=== PATIENT | male | born 1975 | race Caucasian/White ===

== ENCOUNTER 2018-01-08 21:23 | Emergency (ER) | payer BC ==
[2018-01-08] MEDS ORDERED: Sodium Chloride 0.9% 1,000 ML IV ONE ×2 (21:37→22:27)
[2018-01-08] MEDS ORDERED: Ketorolac 30 MG/ML SDV IVPUSH ONE (21:43)
--- NOTE | 2018-01-08 21:50 | EDM.PDOC ---
ED HPI GENERAL MEDICAL PROBLEM - General Chief Complaint: Fever Stated Complaint: [id number] FLU-PRIVATE [facility]HICHLE Time Seen by Provider: 01/08/18 21:48 Source of Information: Reports: Patient History Limitations: Reports: No Limitations - History of Present Illness INITIAL COMMENTS - FREE TEXT/NARRATIVE: onset F/C with V-D last night, V-D stoppped but still has F/C & body aches. 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 [No Known Home Meds] 01/08/18 [History] Past Medical History - Past Health History Medical/Surgical History: Denies Medical/Surgical History HEENT History: Reports: None Cardiovascular History: Reports: High Cholesterol Respiratory History: Reports: None Gastrointestinal History: Reports: None Genitourinary History: Reports: None Musculoskeletal History: Reports: Arthritis, Back Pain, Chronic Neurological History: Reports: None Psychiatric History: Reports: None Endocrine/Metabolic History: Reports: None Hematologic History: Reports: None Immunologic History: Reports: None Oncologic (Cancer) History: Reports: None Dermatologic History: Reports: None - Infectious Disease History Infectious Disease History: Reports: Chicken Pox - Past Surgical History HEENT Surgical History: Reports: Tonsillectomy GI Surgical History: Reports: None Social & Family History - Family History Family Medical History: Noncontributory - Tobacco Use Smoking Status *Q: Never Smoker Second Hand Smoke Exposure: No - Caffeine Use Caffeine Use: Reports: Coffee, Soda - Recreational Drug Use Recreational Drug Use: No ED ROS ENT - Review of Systems Review Of Systems: ROS reveals no pertinent complaints other than HPI. ED EXAM, ENT - Physical Exam Exam: See Below Exam Limited By: No Limitations General Appearance: Alert, WD/WN, Mild Distress, Other (general discomfort) Ears: Hearing Grossly Normal Mouth/Throat: Normal Inspection Head: Atraumatic Neck: Non-Tender, Full Range of Motion Respiratory/Chest: No Respiratory Distress Cardiovascular: Regular Rate, Rhythm GI/Abdominal: Soft, Non-Tender Neurological: Alert, Oriented, Normal Cognition, Normal Gait, No Motor/Sensory Deficits Psychiatric: Flat Affect Skin: Warm, Dry, Normal Color Lymphatic: No Adenopathy Course - Vital Signs Last Recorded V/S: Last Vital Signs Temp 36.9 C 01/08/18 23:15 Pulse 97 01/08/18 23:15 Resp 16 01/08/18 23:15 BP 127/65 01/08/18 23:15 Pulse Ox 96 01/08/18 23:15 - Orders/Labs/Meds Orders: Active Orders 24 hr Category Date Time Status CULTURE BLOOD [BC] Stat Lab 01/08/18 21:48 Received Labs: Laboratory Tests 01/08/18 01/08/18 01/08/18 Range/Units 21:48 21:48 21:48 WBC 9.5 (5.0-10.0) 10^3/uL RBC 5.26 (4.6-6.2) 10^6/uL Hgb 15.7 (14.0-18.0) g/dL Hct 44.9 (40.0-54.0) % MCV 85.4 (80-100) fL MCH 29.8 (27.0-34.0) pg MCHC 35.0 (33.0-35.0) g/dL Plt Count 188 (150-450) 10^3/uL Neut % (Auto) 82.3 H (42.2-75.2) % Lymph % (Auto) 7.5 L (20.5-50.1) % Morgan % (Auto) 10.1 H (2-8) % Eos % (Auto) 0.1 L (1.0-3.0) % Baso % (Auto) 0.0 (0.0-1.0) % Sodium 134 L (135-145) mmol/L Potassium 3.2 L (3.6-5.0) mmol/L Chloride 101 (101-111) mmol/L Carbon Dioxide 24.0 (21.0-31.0) mmol/L Anion Gap 12.2 BUN 18 (7-18) mg/dL Creatinine 0.9 (0.6-1.3) mg/dL Est Cr Clr Drug Dosing 113.88 mL/min Estimated GFR (MDRD) > 60 BUN/Creatinine Ratio 20.00 Glucose 133 H (74-105) mg/dL Lactic Acid 1.0 (0.5-2.2) mmol/L Calcium 8.7 (8.4-10.2) mg/dl Total Bilirubin 0.9 (0.2-1.0) mg/dL AST 19 (10-42) IU/L ALT 21 (10-60) IU/L Alkaline Phosphatase 50 (42-121) IU/L Total Protein 7.3 (6.7-8.2) g/dl Albumin 4.1 (3.2-5.5) g/dl Globulin 3.2 Albumin/Globulin Ratio 1.28 Meds: Medications Discontinued Medications Generic Name Dose Route Start Last Admin Trade Name Vero PRN Reason Stop Dose Admin Sodium Chloride 1,000 mls @ 999 mls/hr 01/08/18 21:37 01/08/18 21:47 Normal Saline IV 01/08/18 22:37 999 mls/hr .BOLUS ONE Administration Sodium Chloride 1,000 mls @ 999 mls/hr 01/08/18 22:27 01/08/18 22:55 Normal Saline IV 01/08/18 23:27 999 mls/hr .BOLUS ONE Administration Ketorolac Tromethamine 15 mg 01/08/18 21:43 01/08/18 21:51 Toradol IVPUSH 01/08/18 21:44 15 mg ONETIME ONE Administration - Re-Assessments/Exams Free Text/Narrative Re-Assessment/Exam: 01/08/18 23:33 results discussed with pt who is feeling much better s/p IV fluids + Rx Departure - Departure Time of Disposition: 23:34 Disposition: Home, Self-Care 01 Condition: Good Clinical Impression: Gastroenteritis, Flu syndrome - Discharge Information Instructions: Viral Illness, Adult Forms: ED Department Discharge Additional Instructions: 1) avoid solid foods next 48 hours 2) take motrin or tylenol for fever and chills and body aches 3) return if there is any change or concern - My Orders Last 24 Hours: My Active Orders 01/08/18 21:48 CULTURE BLOOD [BC] Stat - Assessment/Plan Last 24 Hours: My Active Orders 01/08/18 21:48 CULTURE BLOOD [BC] Stat
[2018-01-08 22:10] LABS: CHLORIDE,CL 101 mmol/L (101-111); SODIUM,NA 134 mmol/L (135-145)
[2018-01-08 23:17] VITALS: BP 127/65
== END 2018-01-08 23:41 | disposition home or self-care (01) ==
LOC: DL.ED 21:23
DX: K52.9 Noninfective gastroenteritis and colitis, unspecified (principal); J11.1 Influenza due to unidentified influenza virus with other respiratory manifestations; E78.00 Pure hypercholesterolemia, unspecified
CPT/HCPCS: 36415; 80053; 83605; 85025; 87040; 87804; 96361; 96374; 99283; J1885; J7030

== ENCOUNTER 2022-08-09 07:20 | Emergency (ER) | payer BC ==
[2022-08-09] MEDS ORDERED: Fluorescein 1 MG Ophth Strip OP ONE (20:35)
[2022-08-09] MEDS ORDERED: Tetracaine HCl/PF 0.5% 4 ML Bottle OP ONE (20:35)
[2022-08-09] MEDS ORDERED: Gentamicin 0.3% Ophth Soln 5 ML Bottle EYEBOTH ONE (21:05)
== END 2022-08-09 21:12 | disposition home or self-care (01) ==
LOC: DL.ED 07:20
DX: S05.02XA Injury of conjunctiva and corneal abrasion without foreign body, left eye, initial encounter (principal)
CPT/HCPCS: 99283

== ENCOUNTER 2023-05-04 08:07 | Emergency (ER) | payer BC ==
[2023-05-04 08:26] VITALS: BP 152/104; PULSE 83
[2023-05-04] MEDS ORDERED: Orphenadrine 60 MG/2 ML Inj IM ONE (08:38)
[2023-05-04] MEDS ORDERED: Ketorolac 30 MG/ML SDV IM ONE (08:38)
[2023-05-04 08:47] LABS: APPEARANCE,URINE CLEAR (CLEAR); BILIRUBIN,URINE NEGATIVE (NEGATIVE); COLOR,URINE YELLOW (YELLOW); GLUCOSE,URINE NEGATIVE (NEGATIVE); KETONES,URINE NEGATIVE (NEGATIVE); LEUKOCYTE ESTERASE,URINE NEGATIVE (NEGATIVE); NITRITE,URINE NEGATIVE (NEGATIVE); OCCULT BLOOD,URINE NEGATIVE (NEGATIVE); PH,URINE 5.5 (5.0-9.0); PROTEIN,URINE NEGATIVE (NEGATIVE); UROBILINOGEN,URINE 0.2 mg/dL (0.2-1.0)
[2023-05-04] MEDS ORDERED: HYDROmorphone 1 MG/ML Syringe IVPUSH ONE (09:36)
[2023-05-04] MEDS ORDERED: HYDROmorphone 1 MG/ML Syringe IM ONE (09:40)
[2023-05-04] MEDS ORDERED: Lidocaine 5% 700 MG Patch TOP ONE (10:21)
[2023-05-04] MEDS ORDERED: Cyclobenzaprine 10 MG Tab PO ONE (10:21)
== END 2023-05-04 11:10 | disposition home or self-care (01) ==
LOC: DL.ED 08:07
DX: M62.830 Muscle spasm of back (principal)
CPT/HCPCS: 74176; 81003; 96372; 99284; A9270; J1170; J1885; J2360; J3360

== ENCOUNTER 2023-06-22 06:23 | Day surgery (SDC) | payer BC ==
[2023-06-22] MEDS ORDERED: Dextrose 5%-0.45% NaCl 1,000 ML IV SCH ×2 (06:30→07:00)
[2023-06-22] MEDS ORDERED: Midazolam 1 MG/ML 2 ML SDV ONE (07:09)
[2023-06-22] MEDS ORDERED: fentaNYL 100 MCG/2 ML SDV ONE (07:09)
[2023-06-22] MEDS ORDERED: fentaNYL 100 MCG/2 ML SDV IV ONE ×6 (07:37→07:48)
[2023-06-22] MEDS ORDERED: Midazolam 1 MG/ML 2 ML SDV IV ONE ×7 (07:38→07:52)
[2023-06-22 09:04] VITALS: BP 127/93; PULSE 58
== END 2023-06-22 09:12 | disposition home or self-care (01) ==
LOC: DL.ENDO 06:23
PROVIDERS: ATTEND Internal Medicine Gastroenterology
DX: Z12.11 Encounter for screening for malignant neoplasm of colon (principal); E78.00 Pure hypercholesterolemia, unspecified; M54.50 Low back pain, unspecified; E66.09 Other obesity due to excess calories; Z68.29 Body mass index [BMI] 29.0-29.9, adult; F10.90 Alcohol use, unspecified, uncomplicated
CPT/HCPCS: J2250; J3010; J7042